=== PATIENT | male | born 1985 | race Caucasian/White ===

== ENCOUNTER 2018-07-06 15:11 | Inpatient (IN) | payer MEDICAID ==
[~2018-07-06] VITALS: Ht 172.7 cm; Wt 101.2 kg
[~2018-07-06 15:11] MED LIST: ARIP5TAB8 PO; DSS100 PO; OMEP20 PO
[2018-07-06] MEDS ORDERED: ARIP300S3 IM (15:15)
[2018-07-06] MEDS ORDERED: OLANZapine 5 MG RAPDIS TABLET PO PRN (18:00)
[2018-07-06] MEDS: LORazepam 2 MG TABLET PO PRN (19:13)
[2018-07-06 20:27] LABS: APPEARANCE,URINE CLEAR (CLEAR); BILIRUBIN,URINE NEGATIVE (NEGATIVE); GLUCOSE, URINE (UA) NEGATIVE (NEGATIVE); KETONES,URINE TRACE mg/dL (NEGATIVE); LEUKOCYTE ESTERASE ,URINE NEGATIVE (NEGATIVE); NITRATE,URINE NEGATIVE (NEGATIVE); OCCULT BLOOD,URINE NEGATIVE (NEGATIVE); PH,URINE 5.5 (5.0-8.0); PROTEIN,URINE NEGATIVE (NEGATIVE); UROBILINOGEN,URINE 0.2 mg/dL (<=1.0)
[2018-07-06 22:05] LABS: BASOPHILS % (AUTO) 0.9 % (0.0-2.0); EOSINOPHILS % (AUTO) 3.5 % (1.0-6.0); HEMOGLOBIN 14.5 g/dL (13.5-17.5); LYMPHOCYTES # (AUTO) 2.5 K/uL (1.0-4.8); LYMPHOCYTES % (AUTO) 36.3 % (22.0-44.0); MEAN CORPUSCULAR HEMOGLOBIN 29.8 pg (26.0-34.0); MEAN CORPUSCULAR HGB CONC 34.5 G/dL (31.0-37.0); MEAN CORPUSCULAR VOLUME 86 fL (80-100); MONOCYTES # (AUTO) 0.5 K/uL (0.1-1.0); MONOCYTES % (AUTO) 6.9 % (2.0-9.0); NEUTROPHILS # (AUTO) 3.6 K/uL (1.8-7.7); NEUTROPHILS % (AUTO) 52.4 % (40.0-70.0); PLATELET COUNT (AUTO) 232 K/uL (150-450); RED BLOOD CELL COUNT(AUTO) 4.86 MIL/uL (4.50-5.90); RED CELL DISTRIBUTION WIDTH 13.6 % (11.5-14.5)
[2018-07-06 22:14] LABS: AMPHET/METH SCREEN,URINE POSITIVE (NEGATIVE); BARBITURATE SCREEN, URINE NEGATIVE (NEGATIVE); BENZODIAZEPINES SCREEN,URINE NEGATIVE (NEGATIVE); CANNABINOID SCREEN,URINE POSITIVE (NEGATIVE); COCAINE SCREEN,URINE NEGATIVE (NEGATIVE); METHADONE SCREEN, URINE NEGATIVE (NEGATIVE); OPIATE SCREEN,URINE NEGATIVE (NEGATIVE); PHENCYCLIDINE SCREEN,URINE NEGATIVE (NEGATIVE)
[2018-07-06 22:14] LABS: ANION GAP 7 mmol/L (8-16); CALCIUM, TOTAL 8.4 mg/dL (8.8-10.5); CARBON DIOXIDE 29 mmol/L (22-29); CHLORIDE 105 mmol/L (98-107); CREATININE 0.68 mg/dL (0.60-1.30); GLOMERULAR FILTR. RATE CALC > 60 mL/min (>60); GLUCOSE,RANDOM 105 mg/dL (70-110); POTASSIUM 3.9 mmol/L (3.5-5.1); SODIUM SERUM 141 mmol/L (136-145); UREA NITROGEN, BLOOD 12 mg/dL (7-18)
[2018-07-06 22:20] LABS: ALANINE AMINOTRANSFERASE 40 U/L (12-78); ALBUMIN 3.3 g/dL (3.4-5.0); ALKALINE PHOSPHATASE 90 U/L (46-116); ASPARTATE AMINOTRANSFERASE 20 U/L (15-37); BILIRUBIN,TOTAL 0.2 mg/dL (0.1-1.0); TOTAL PROTEIN, SERUM 6.5 g/dL (6.4-8.2)
[2018-07-06] MEDS: ZOLPIDEM TARTRATE 10 MG TABLET PO PRN (22:43)
[2018-07-07] MEDS ORDERED: GuaiFENesin/D-METHORPHAN [SUGAR-FREE] 200-20MG/10 ML SYRUP UDCUP PO PRN (00:45)
[2018-07-07] MEDS ORDERED: LOPERAMIDE HCL 2 MG CAPSULE PO PRN (00:45)
[2018-07-07] MEDS ORDERED: ONDANSETRON HCL 4 MG TABLET PO PRN (00:45)
[2018-07-07] MEDS ORDERED: PETROLATUM,WHITE 71 GM JELLY TP PRN (00:45)
[2018-07-07] MEDS ORDERED: NICOTINE 14 MG/24 HOUR PATCH TD PRN (00:45)
[2018-07-07] MEDS ORDERED: IBUPROFEN 400 MG TABLET PO PRN (00:45)
[2018-07-07] MEDS ORDERED: MAGNESIUM HYDROXIDE SUSPENSION 30 ML UDCUP PO PRN (00:45)
[2018-07-07] MEDS ORDERED: MAG HYDROX/AL HYDROX/SIMETH ES 30 ML SUSPENSION UDCUP PO PRN (00:45)
[2018-07-07] MEDS ORDERED: DOCUSATE SODIUM 100 MG CAPSULE PO PRN (00:45)
[2018-07-07] MEDS ORDERED: ALBUTEROL SULFATE HFA 90 MCG/PUFF 8 GM INHALER IH PRN (00:45)
[2018-07-07] MEDS ORDERED: ACETAMINOPHEN 325 MG TABLET PO PRN (00:45)
[2018-07-07] MEDS ORDERED: CloNIDine HCL 0.1 MG TABLET PO PRN (00:45)
[2018-07-07 00:58] VITALS: BP 121/78
[2018-07-07 03:11] LABS: CHOL/HDL RATIO 5.7 (4.2-7.3); CHOLESTEROL 136 mg/dL (131-200); HDL CHOLESTEROL 24 mg/dL (40-60); LDL CHOL (CALC.) 76 mg/dL (0-130); TRIGLYCERIDES 182 mg/dL (15-150)
[2018-07-07 10:00] VITALS: BP 126/70
[2018-07-07] MEDS: LORazepam 2 MG TABLET PO PRN (16:15)
[2018-07-07 20:14] VITALS: BP 124/75
[2018-07-07] MEDS: ARIPiprazole 10 MG TABLET PO SCH (20:44)
[2018-07-08] MEDS: FLUoxetine HCL 20 MG CAPSULE PO SCH (08:09)
[2018-07-08 08:49] VITALS: BP 132/74
[2018-07-08] MEDS: LORazepam 2 MG TABLET PO PRN (13:16)
[2018-07-08 18:24] VITALS: BP 138/84
[2018-07-08] MEDS: ARIPiprazole 10 MG TABLET PO SCH (20:30)
[2018-07-08] MEDS: ZOLPIDEM TARTRATE 10 MG TABLET PO PRN (21:13)
[2018-07-09] MEDS: FLUoxetine HCL 20 MG CAPSULE PO SCH (09:18)
[2018-07-09 10:23] VITALS: BP 114/69
[2018-07-09 20:11] VITALS: BP 130/80
[2018-07-09] MEDS: ARIPiprazole 10 MG TABLET PO SCH (20:22)
[2018-07-09] MEDS: ZOLPIDEM TARTRATE 10 MG TABLET PO PRN (20:23)
[2018-07-10] MEDS: FLUoxetine HCL 20 MG CAPSULE PO SCH (09:06)
[2018-07-10 09:12] VITALS: BP 151/77
[2018-07-10 16:36] VITALS: BP 127/78
[2018-07-10 17:36] VITALS: BP 114/74
[2018-07-10] MEDS: ARIPiprazole 10 MG TABLET PO SCH (20:16)
[2018-07-11] MEDS: FLUoxetine HCL 20 MG CAPSULE PO SCH (08:23)
[2018-07-11 08:45] VITALS: BP 162/98
[2018-07-11] MEDS ORDERED: ARIP10TA8 PO (14:32)
[2018-07-11] MEDS ORDERED: FLUO-191 PO (14:32)
== END 2018-07-11 16:30 | disposition home or self-care (01) | DRG 750 ==
LOC: EMS 15:12 → UNDOADMIN 23:58 → AHU 23:58 → 3EI 07-08 16:56
PROVIDERS: ADMIT Psychiatry & Neurology Psychiatry; ATTEND Psychiatry & Neurology Psychiatry
DX: F25.1 Schizoaffective disorder, depressive type (principal); E66.9 Obesity, unspecified; F41.9 Anxiety disorder, unspecified; G47.00 Insomnia, unspecified; K59.00 Constipation, unspecified; F19.10 Other psychoactive substance abuse, uncomplicated; F15.10 Other stimulant abuse, uncomplicated; F12.10 Cannabis abuse, uncomplicated; R45.87 Impulsiveness; Z68.33 Body mass index [BMI] 33.0-33.9, adult; Z71.51 Drug abuse counseling and surveillance of drug abuser; Z79.899 Other long term (current) drug therapy; Z88.8 Allergy status to other drugs, medicaments and biological substances
CPT/HCPCS: 84443; G0378; G0480; Q0162

== ENCOUNTER 2018-08-18 17:58 | Inpatient (IN) | payer MEDICAID, OTHER ==
[~2018-08-18] VITALS: Ht 175.3 cm; Wt 103.0 kg
[~2018-08-18 17:58] MED LIST changes: +ARIP10TA8 PO; -ARIP5TAB8 PO; -DSS100 PO; +FLUO-191 PO; -OMEP20 PO
[2018-08-18 19:09] LABS: BASOPHILS % (AUTO) 1.1 % (0.0-2.0); EOSINOPHILS % (AUTO) 1.5 % (1.0-6.0); HEMATOCRIT 44.4 % (41-53); HEMOGLOBIN 15.7 g/dL (13.5-17.5); LYMPHOCYTES # (AUTO) 1.8 K/uL (1.0-4.8); LYMPHOCYTES % (AUTO) 26.2 % (22.0-44.0); MEAN CORPUSCULAR HEMOGLOBIN 30.5 pg (26.0-34.0); MEAN CORPUSCULAR HGB CONC 35.4 G/dL (31.0-37.0); MEAN CORPUSCULAR VOLUME 86 fL (80-100); MONOCYTES # (AUTO) 0.4 K/uL (0.1-1.0); MONOCYTES % (AUTO) 6.5 % (2.0-9.0); NEUTROPHILS # (AUTO) 4.5 K/uL (1.8-7.7); NEUTROPHILS % (AUTO) 64.7 % (40.0-70.0); PLATELET COUNT (AUTO) 253 K/uL (150-450); RED BLOOD CELL COUNT(AUTO) 5.15 MIL/uL (4.50-5.90); RED CELL DISTRIBUTION WIDTH 14.3 % (11.5-14.5)
[2018-08-18 19:17] LABS: AMPHET/METH SCREEN,URINE NEGATIVE (NEGATIVE); BARBITURATE SCREEN, URINE NEGATIVE (NEGATIVE); BENZODIAZEPINES SCREEN,URINE NEGATIVE (NEGATIVE); CANNABINOID SCREEN,URINE POSITIVE (NEGATIVE); COCAINE SCREEN,URINE NEGATIVE (NEGATIVE); METHADONE SCREEN, URINE NEGATIVE (NEGATIVE); OPIATE SCREEN,URINE NEGATIVE (NEGATIVE)
[2018-08-18 19:18] LABS: PHENCYCLIDINE SCREEN,URINE NEGATIVE (NEGATIVE)
[2018-08-18 19:28] LABS: ANION GAP 8 mmol/L (8-16); CALCIUM, TOTAL 8.5 mg/dL (8.8-10.5); CARBON DIOXIDE 28 mmol/L (22-29); CHLORIDE 104 mmol/L (98-107); CREATININE 0.98 mg/dL (0.60-1.30); GLOMERULAR FILTR. RATE CALC > 60 mL/min (>60); GLUCOSE,RANDOM 97 mg/dL (70-110); POTASSIUM 3.7 mmol/L (3.5-5.1); SODIUM SERUM 140 mmol/L (136-145); UREA NITROGEN, BLOOD 11 mg/dL (7-18)
[2018-08-18 19:34] LABS: ALANINE AMINOTRANSFERASE 50 U/L (12-78); ALBUMIN 4.2 g/dL (3.4-5.0); ALKALINE PHOSPHATASE 101 U/L (46-116); ASPARTATE AMINOTRANSFERASE 23 U/L (15-37); BILIRUBIN,TOTAL 0.3 mg/dL (0.1-1.0); TOTAL PROTEIN, SERUM 7.5 g/dL (6.4-8.2)
[2018-08-18] MEDS ORDERED: OLANZapine 5 MG TABLET PO ONE (19:45)
[2018-08-18] MEDS ORDERED: LORazepam 2 MG TABLET PO ONE (19:45)
[2018-08-18] MEDS ORDERED: OLANZapine 5 MG RAPDIS TABLET PO PRN (20:15)
[2018-08-18] MEDS ORDERED: LORazepam 2 MG TABLET PO PRN (20:15)
[2018-08-18] MEDS ORDERED: ZOLPIDEM TARTRATE 10 MG TABLET PO PRN (20:15)
[2018-08-19] MEDS ORDERED: DiphenhydrAMINE HCL 25 MG CAPSULE PO ONE (01:15)
[2018-08-19] MEDS ORDERED: LORazepam 2 MG TABLET PO ONE (01:15)
[2018-08-19 02:34] VITALS: BP 121/67
[2018-08-19] MEDS ORDERED: MAG HYDROX/AL HYDROX/SIMETH ES 30 ML SUSPENSION UDCUP PO PRN (07:30)
[2018-08-19] MEDS ORDERED: IBUPROFEN 400 MG TABLET PO PRN (07:30)
[2018-08-19] MEDS ORDERED: DOCUSATE SODIUM 100 MG CAPSULE PO PRN (07:30)
[2018-08-19] MEDS ORDERED: ALBUTEROL SULFATE HFA 90 MCG/PUFF 8 GM INHALER IH PRN (07:30)
[2018-08-19] MEDS ORDERED: LOPERAMIDE HCL 2 MG CAPSULE PO PRN (07:30)
[2018-08-19] MEDS ORDERED: CloNIDine HCL 0.1 MG TABLET PO PRN (07:30)
[2018-08-19] MEDS ORDERED: NICOTINE 14 MG/24 HOUR PATCH TD PRN (07:30)
[2018-08-19] MEDS ORDERED: PETROLATUM,WHITE 71 GM JELLY TP PRN (07:30)
[2018-08-19] MEDS ORDERED: ACETAMINOPHEN 325 MG TABLET PO PRN (07:30)
[2018-08-19] MEDS ORDERED: MAGNESIUM HYDROXIDE SUSPENSION 30 ML UDCUP PO PRN (07:30)
[2018-08-19] MEDS ORDERED: GuaiFENesin/D-METHORPHAN [SUGAR-FREE] 200-20MG/10 ML SYRUP UDCUP PO PRN (07:30)
[2018-08-19] MEDS ORDERED: ONDANSETRON HCL 4 MG TABLET PO PRN (07:30)
[2018-08-19 07:36] LABS: CHOL/HDL RATIO 4.5 (4.2-7.3)
[2018-08-19 10:02] VITALS: BP 139/86
[2018-08-19] MEDS: ARIPiprazole 10 MG TABLET PO SCH (14:12)
[2018-08-19] MEDS: FLUoxetine HCL 20 MG CAPSULE PO SCH (14:12)
[2018-08-19 20:50] VITALS: BP 125/71
[2018-08-20 06:46] LABS: BASOPHILS % (AUTO) 0.9 % (0.0-2.0); EOSINOPHILS % (AUTO) 4.5 % (1.0-6.0); HEMATOCRIT 43.4 % (41-53); HEMOGLOBIN 15.2 g/dL (13.5-17.5); LYMPHOCYTES # (AUTO) 1.8 K/uL (1.0-4.8); LYMPHOCYTES % (AUTO) 36.4 % (22.0-44.0); MEAN CORPUSCULAR HEMOGLOBIN 30.1 pg (26.0-34.0); MEAN CORPUSCULAR HGB CONC 35.1 G/dL (31.0-37.0); MEAN CORPUSCULAR VOLUME 86 fL (80-100); MONOCYTES # (AUTO) 0.4 K/uL (0.1-1.0); MONOCYTES % (AUTO) 8.7 % (2.0-9.0); NEUTROPHILS # (AUTO) 2.5 K/uL (1.8-7.7); NEUTROPHILS % (AUTO) 49.5 % (40.0-70.0); PLATELET COUNT (AUTO) 220 K/uL (150-450); RED BLOOD CELL COUNT(AUTO) 5.06 MIL/uL (4.50-5.90); RED CELL DISTRIBUTION WIDTH 13.9 % (11.5-14.5)
[2018-08-20 07:01] LABS: HEMOGLOBIN A1C 5.3 % (4.5-6.2)
[2018-08-20 07:37] LABS: ALANINE AMINOTRANSFERASE 53 U/L (12-78); ALBUMIN 3.9 g/dL (3.4-5.0); ALKALINE PHOSPHATASE 93 U/L (46-116); ANION GAP 6 mmol/L (8-16); ASPARTATE AMINOTRANSFERASE 21 U/L (15-37); BILIRUBIN,TOTAL 0.5 mg/dL (0.1-1.0); CALCIUM, TOTAL 8.5 mg/dL (8.8-10.5); CARBON DIOXIDE 29 mmol/L (22-29); CHLORIDE 104 mmol/L (98-107); CHOL/HDL RATIO 5.6 (4.2-7.3); CHOLESTEROL 156 mg/dL (131-200); CREATININE 0.88 mg/dL (0.60-1.30); GLOMERULAR FILTR. RATE CALC > 60 mL/min (>60); GLUCOSE,RANDOM 85 mg/dL (70-110); HDL CHOLESTEROL 28 mg/dL (40-60); LDL CHOL (CALC.) 101 mg/dL (0-130); POTASSIUM 4.6 mmol/L (3.5-5.1); SODIUM SERUM 139 mmol/L (136-145); TOTAL PROTEIN, SERUM 6.6 g/dL (6.4-8.2); TRIGLYCERIDES 137 mg/dL (15-150); UREA NITROGEN, BLOOD 12 mg/dL (7-18)
[2018-08-20] MEDS: ARIPiprazole 10 MG TABLET PO SCH (09:21)
[2018-08-20] MEDS: FLUoxetine HCL 20 MG CAPSULE PO SCH (09:22)
[2018-08-20 09:28] VITALS: BP 119/80
[2018-08-20 21:50] VITALS: BP 117/76
[2018-08-21] MEDS: ARIPiprazole 10 MG TABLET PO SCH (08:13)
[2018-08-21] MEDS: FLUoxetine HCL 20 MG CAPSULE PO SCH (08:13)
[2018-08-21 09:15] VITALS: BP 125/79
[2018-08-21] MEDS ORDERED: FLUO-191 PO (12:34)
[2018-08-21] MEDS ORDERED: ARIP10TA8 PO (12:34)
== END 2018-08-21 14:30 | disposition home or self-care (01) | DRG 750 ==
LOC: EMS 18:00 → 3EI 08-19 01:05
PROVIDERS: ADMIT Psychiatry & Neurology Psychiatry; ATTEND Psychiatry & Neurology Psychiatry
DX: F25.9 Schizoaffective disorder, unspecified (principal); F12.90 Cannabis use, unspecified, uncomplicated; F17.200 Nicotine dependence, unspecified, uncomplicated; F31.9 Bipolar disorder, unspecified; F41.9 Anxiety disorder, unspecified; K59.00 Constipation, unspecified; G47.00 Insomnia, unspecified; Z79.899 Other long term (current) drug therapy
CPT/HCPCS: 83036; 84443; G0480

== ENCOUNTER 2018-09-28 15:29 | Emergency (ER) | payer MEDICAID, OTHER ==
[~2018-09-28] VITALS: Ht 172.7 cm; Wt 109.1 kg
[2018-09-28] MEDS ORDERED: ONDANSETRON HCL 4 MG TABLET PO ONE (19:15)
[2018-09-28 19:38] LABS: BASOPHILS % (AUTO) 0.4 % (0.0-2.0); EOSINOPHILS % (AUTO) 1.2 % (1.0-6.0); HEMATOCRIT 44.6 % (41-53); HEMOGLOBIN 15.4 g/dL (13.5-17.5); LYMPHOCYTES # (AUTO) 1.1 K/uL (1.0-4.8); LYMPHOCYTES % (AUTO) 17.3 % (22.0-44.0); MEAN CORPUSCULAR HEMOGLOBIN 29.7 pg (26.0-34.0); MEAN CORPUSCULAR HGB CONC 34.6 G/dL (31.0-37.0); MEAN CORPUSCULAR VOLUME 86 fL (80-100); MONOCYTES # (AUTO) 0.4 K/uL (0.1-1.0); MONOCYTES % (AUTO) 6.1 % (2.0-9.0); NEUTROPHILS # (AUTO) 4.7 K/uL (1.8-7.7); PLATELET COUNT (AUTO) 198 K/uL (150-450); RED CELL DISTRIBUTION WIDTH 13.6 % (11.5-14.5)
[2018-09-28 19:59] LABS: APPEARANCE,URINE CLEAR (CLEAR); BILIRUBIN,URINE NEGATIVE (NEGATIVE); GLUCOSE, URINE (UA) NEGATIVE (NEGATIVE); KETONES,URINE NEGATIVE (NEGATIVE); LEUKOCYTE ESTERASE ,URINE NEGATIVE (NEGATIVE); NITRATE,URINE NEGATIVE (NEGATIVE); OCCULT BLOOD,URINE NEGATIVE (NEGATIVE); PROTEIN,URINE TRACE (NEGATIVE)
[2018-09-28 20:03] LABS: ALANINE AMINOTRANSFERASE 53 U/L (12-78); ALBUMIN 3.7 g/dL (3.4-5.0); ALKALINE PHOSPHATASE 95 U/L (46-116); ANION GAP 7 mmol/L (8-16); ASPARTATE AMINOTRANSFERASE 27 U/L (15-37); BILIRUBIN,TOTAL 0.5 mg/dL (0.1-1.0); CALCIUM, TOTAL 8.8 mg/dL (8.8-10.5); CARBON DIOXIDE 30 mmol/L (22-29); CHLORIDE 100 mmol/L (98-107); CREATININE 0.72 mg/dL (0.60-1.30); GLOMERULAR FILTR. RATE CALC > 60 mL/min (>60); GLUCOSE,RANDOM 88 mg/dL (70-110); LIPASE 102 U/L (73-393); POTASSIUM 3.9 mmol/L (3.5-5.1); SODIUM SERUM 137 mmol/L (136-145); TOTAL PROTEIN, SERUM 7.2 g/dL (6.4-8.2); UREA NITROGEN, BLOOD 7 mg/dL (7-18)
[2018-09-28 20:10] LABS: BACTERIA,URINE None Seen /HPF (None Seen); RBC,URINE 0-2 /HPF (0-2); SQUAMOUS EPITHELIAL CELL,UR Rare /LPF (None Seen); WBC,URINE 0-2 /HPF (0-5)
[2018-09-28 20:28] LABS: PLATELET MORPHOLOGY COMMENT NORMAL
[2018-09-28 20:35] VITALS: BP 120/70
== END 2018-09-28 20:45 | disposition home or self-care (01) ==
LOC: EMS 15:30
DX: R19.7 Diarrhea, unspecified (principal); R11.2 Nausea with vomiting, unspecified; R10.9 Unspecified abdominal pain; F31.9 Bipolar disorder, unspecified; F41.9 Anxiety disorder, unspecified; F17.210 Nicotine dependence, cigarettes, uncomplicated; F12.90 Cannabis use, unspecified, uncomplicated; Z88.8 Allergy status to other drugs, medicaments and biological substances; Z79.899 Other long term (current) drug therapy
CPT/HCPCS: 36415; 80053; 81001; 83690; 85025; 99283; Q0162

== ENCOUNTER 2018-10-18 14:22 | Inpatient (IN) | payer MEDICAID, OTHER ==
[~2018-10-18] VITALS: Ht 170.2 cm; Wt 97.1 kg
[2018-10-18] MEDS ORDERED: OLANZapine 5 MG TABLET PO ONE (15:15)
[2018-10-18 15:17] LABS: BASOPHILS % (AUTO) 0.8 % (0.0-2.0); EOSINOPHILS % (AUTO) 4.1 % (1.0-6.0); HEMATOCRIT 43.3 % (41-53); HEMOGLOBIN 14.8 g/dL (13.5-17.5); LYMPHOCYTES # (AUTO) 1.9 K/uL (1.0-4.8); LYMPHOCYTES % (AUTO) 32.5 % (22.0-44.0); MEAN CORPUSCULAR HEMOGLOBIN 29.8 pg (26.0-34.0); MEAN CORPUSCULAR HGB CONC 34.2 G/dL (31.0-37.0); MEAN CORPUSCULAR VOLUME 87 fL (80-100); MONOCYTES # (AUTO) 0.7 K/uL (0.1-1.0); MONOCYTES % (AUTO) 11.2 % (2.0-9.0); NEUTROPHILS % (AUTO) 51.4 % (40.0-70.0); PLATELET COUNT (AUTO) 243 K/uL (150-450); RED BLOOD CELL COUNT(AUTO) 4.97 MIL/uL (4.50-5.90); RED CELL DISTRIBUTION WIDTH 13.7 % (11.5-14.5)
[2018-10-18 15:27] LABS: AMPHET/METH SCREEN,URINE NEGATIVE (NEGATIVE); BARBITURATE SCREEN, URINE NEGATIVE (NEGATIVE); BENZODIAZEPINES SCREEN,URINE NEGATIVE (NEGATIVE); CANNABINOID SCREEN,URINE POSITIVE (NEGATIVE); COCAINE SCREEN,URINE NEGATIVE (NEGATIVE); METHADONE SCREEN, URINE NEGATIVE (NEGATIVE); OPIATE SCREEN,URINE NEGATIVE (NEGATIVE)
[2018-10-18 15:28] LABS: PHENCYCLIDINE SCREEN,URINE NEGATIVE (NEGATIVE)
[2018-10-18 15:35] LABS: ANION GAP 7 mmol/L (8-16); CALCIUM, TOTAL 8.6 mg/dL (8.8-10.5); CARBON DIOXIDE 29 mmol/L (22-29); CHLORIDE 104 mmol/L (98-107); CREATININE 0.84 mg/dL (0.60-1.30); GLOMERULAR FILTR. RATE CALC > 60 mL/min (>60); GLUCOSE,RANDOM 68 mg/dL (70-110); POTASSIUM 3.9 mmol/L (3.5-5.1); SODIUM SERUM 140 mmol/L (136-145); UREA NITROGEN, BLOOD 11 mg/dL (7-18)
[2018-10-18 15:41] LABS: ALANINE AMINOTRANSFERASE 35 U/L (12-78); ALBUMIN 3.6 g/dL (3.4-5.0); ALKALINE PHOSPHATASE 89 U/L (46-116); ASPARTATE AMINOTRANSFERASE 18 U/L (15-37); BILIRUBIN,TOTAL 0.2 mg/dL (0.1-1.0); TOTAL PROTEIN, SERUM 6.7 g/dL (6.4-8.2)
[2018-10-18] MEDS ORDERED: OLANZapine 5 MG RAPDIS TABLET PO PRN (16:45)
[2018-10-18] MEDS ORDERED: ZOLPIDEM TARTRATE 10 MG TABLET PO PRN (16:45)
[2018-10-18 18:41] VITALS: BP 126/82
[2018-10-18] MEDS ORDERED: LOPERAMIDE HCL 2 MG CAPSULE PO PRN (19:45)
[2018-10-18] MEDS ORDERED: IBUPROFEN 400 MG TABLET PO PRN (19:45)
[2018-10-18] MEDS ORDERED: GuaiFENesin/D-METHORPHAN [SUGAR-FREE] 200-20MG/10 ML SYRUP UDCUP PO PRN (19:45)
[2018-10-18] MEDS ORDERED: MAGNESIUM HYDROXIDE SUSPENSION 30 ML UDCUP PO PRN (19:45)
[2018-10-18] MEDS ORDERED: PETROLATUM,WHITE 71 GM JELLY TP PRN (19:45)
[2018-10-18] MEDS ORDERED: CloNIDine HCL 0.1 MG TABLET PO PRN (19:45)
[2018-10-18] MEDS ORDERED: ALBUTEROL SULFATE HFA 90 MCG/PUFF 8 GM INHALER IH PRN (19:45)
[2018-10-18] MEDS ORDERED: MAG HYDROX/AL HYDROX/SIMETH ES 30 ML SUSPENSION UDCUP PO PRN (19:45)
[2018-10-18] MEDS ORDERED: ONDANSETRON HCL 4 MG TABLET PO PRN (19:45)
[2018-10-18] MEDS ORDERED: DOCUSATE SODIUM 100 MG CAPSULE PO PRN (19:45)
[2018-10-18] MEDS ORDERED: ACETAMINOPHEN 325 MG TABLET PO PRN (19:45)
[2018-10-19 00:36] VITALS: BP 115/64
[2018-10-19 07:33] LABS: BASOPHILS % (AUTO) 1.2 % (0.0-2.0); EOSINOPHILS % (AUTO) 4.6 % (1.0-6.0); HEMATOCRIT 42.9 % (41-53); HEMOGLOBIN 14.9 g/dL (13.5-17.5); LYMPHOCYTES # (AUTO) 1.9 K/uL (1.0-4.8); MEAN CORPUSCULAR HEMOGLOBIN 30.3 pg (26.0-34.0); MEAN CORPUSCULAR HGB CONC 34.7 G/dL (31.0-37.0); MEAN CORPUSCULAR VOLUME 87 fL (80-100); MONOCYTES # (AUTO) 0.5 K/uL (0.1-1.0); MONOCYTES % (AUTO) 10.4 % (2.0-9.0); NEUTROPHILS # (AUTO) 2.2 K/uL (1.8-7.7); NEUTROPHILS % (AUTO) 44.8 % (40.0-70.0); PLATELET COUNT (AUTO) 228 K/uL (150-450); RED BLOOD CELL COUNT(AUTO) 4.92 MIL/uL (4.50-5.90); RED CELL DISTRIBUTION WIDTH 13.6 % (11.5-14.5)
[2018-10-19 07:37] LABS: AMPHET/METH SCREEN,URINE NEGATIVE (NEGATIVE); BARBITURATE SCREEN, URINE NEGATIVE (NEGATIVE); BENZODIAZEPINES SCREEN,URINE NEGATIVE (NEGATIVE); CANNABINOID SCREEN,URINE POSITIVE (NEGATIVE); COCAINE SCREEN,URINE NEGATIVE (NEGATIVE); METHADONE SCREEN, URINE NEGATIVE (NEGATIVE); OPIATE SCREEN,URINE NEGATIVE (NEGATIVE); PHENCYCLIDINE SCREEN,URINE NEGATIVE (NEGATIVE)
[2018-10-19 07:49] LABS: APPEARANCE,URINE CLEAR (CLEAR); BILIRUBIN,URINE NEGATIVE (NEGATIVE); GLUCOSE, URINE (UA) NEGATIVE (NEGATIVE); KETONES,URINE NEGATIVE (NEGATIVE); LEUKOCYTE ESTERASE ,URINE NEGATIVE (NEGATIVE); NITRATE,URINE NEGATIVE (NEGATIVE); OCCULT BLOOD,URINE NEGATIVE (NEGATIVE); PH,URINE 6.5 (5.0-8.0); PROTEIN,URINE NEGATIVE (NEGATIVE); UROBILINOGEN,URINE 0.2 mg/dL (<=1.0)
[2018-10-19 08:13] LABS: HEMOGLOBIN A1C 5.3 % (4.5-6.2)
[2018-10-19 08:17] VITALS: BP 140/68
[2018-10-19 08:18] LABS: ALANINE AMINOTRANSFERASE 46 U/L (12-78); ALBUMIN 3.7 g/dL (3.4-5.0); ALKALINE PHOSPHATASE 84 U/L (46-116); ANION GAP 5 mmol/L (8-16); ASPARTATE AMINOTRANSFERASE 18 U/L (15-37); BILIRUBIN,TOTAL 0.2 mg/dL (0.1-1.0); CALCIUM, TOTAL 8.9 mg/dL (8.8-10.5); CARBON DIOXIDE 33 mmol/L (22-29); CHLORIDE 100 mmol/L (98-107); CHOL/HDL RATIO 4.1 (4.2-7.3); CHOLESTEROL 126 mg/dL (131-200); CREATININE 0.92 mg/dL (0.60-1.30); GLOMERULAR FILTR. RATE CALC > 60 mL/min (>60); GLUCOSE,RANDOM 80 mg/dL (70-110); HDL CHOLESTEROL 31 mg/dL (40-60); LDL CHOL (CALC.) 70 mg/dL (0-130); POTASSIUM 4.3 mmol/L (3.5-5.1); SODIUM SERUM 138 mmol/L (136-145); THYROID STIMULATING HORMONE 3.76 uIU/mL (0.36-3.74); TOTAL PROTEIN, SERUM 6.6 g/dL (6.4-8.2); TRIGLYCERIDES 124 mg/dL (15-150); UREA NITROGEN, BLOOD 12 mg/dL (7-18)
[2018-10-19] MEDS: NICOTINE 14 MG/24 HOUR PATCH TD PRN (10:07)
[2018-10-19] MEDS: LORazepam 2 MG TABLET PO PRN (10:08)
[2018-10-19 16:22] VITALS: BP 121/72
[2018-10-20 00:45] VITALS: BP 108/62
[2018-10-20] MEDS: FLUoxetine HCL 20 MG CAPSULE PO SCH (08:11)
[2018-10-20] MEDS: ARIPiprazole 10 MG TABLET PO SCH (08:11)
[2018-10-20 08:14] VITALS: BP 140/86
[2018-10-20] MEDS: LORazepam 2 MG TABLET PO PRN (10:03)
[2018-10-20] MEDS: NICOTINE 14 MG/24 HOUR PATCH TD PRN (10:06)
[2018-10-20 16:00] VITALS: BP 124/74
[2018-10-21 00:50] VITALS: BP 115/66
[2018-10-21 08:04] VITALS: BP 122/75
[2018-10-21] MEDS: ARIPiprazole 10 MG TABLET PO SCH (08:39)
[2018-10-21] MEDS: FLUoxetine HCL 20 MG CAPSULE PO SCH (08:39)
[2018-10-21] MEDS: LORazepam 2 MG TABLET PO PRN (10:07)
[2018-10-21 16:19] VITALS: BP 112/77
[2018-10-22 02:38] VITALS: BP 114/76
[2018-10-22 08:15] VITALS: BP 114/65
[2018-10-22] MEDS: NICOTINE 14 MG/24 HOUR PATCH TD PRN (08:27)
[2018-10-22] MEDS: ARIPiprazole 15 MG TABLET PO SCH (08:27)
[2018-10-22] MEDS: FLUoxetine HCL 20 MG CAPSULE PO SCH (08:27)
[2018-10-22] MEDS: LORazepam 2 MG TABLET PO PRN (14:54)
[2018-10-22 16:13] VITALS: BP 120/70
[2018-10-23 02:57] VITALS: BP 118/63
[2018-10-23] MEDS ORDERED: FLUO-191 PO (08:03)
[2018-10-23] MEDS ORDERED: ARIP15TA2 PO (08:03)
[2018-10-23 08:23] VITALS: BP 137/82
[2018-10-23] MEDS: FLUoxetine HCL 20 MG CAPSULE PO SCH (08:27)
[2018-10-23] MEDS: ARIPiprazole 15 MG TABLET PO SCH (08:28)
== END 2018-10-23 09:45 | disposition home or self-care (01) | DRG 750 ==
LOC: EMS 14:22 → B2S 17:14
PROVIDERS: ADMIT Psychiatry & Neurology Psychiatry; ATTEND Psychiatry & Neurology Psychiatry
DX: F25.0 Schizoaffective disorder, bipolar type (principal); R45.851 Suicidal ideations; F17.210 Nicotine dependence, cigarettes, uncomplicated; F41.9 Anxiety disorder, unspecified; G47.00 Insomnia, unspecified; F12.10 Cannabis abuse, uncomplicated; K59.00 Constipation, unspecified; F32.9 Major depressive disorder, single episode, unspecified; Z79.899 Other long term (current) drug therapy; Z28.21 Immunization not carried out because of patient refusal; Z88.8 Allergy status to other drugs, medicaments and biological substances; Z71.51 Drug abuse counseling and surveillance of drug abuser
CPT/HCPCS: 83036; 84439; 84443; 84481; G0480

== ENCOUNTER 2019-01-12 01:41 | Emergency (ER) | payer MEDICAID, OTHER ==
[~2019-01-12] VITALS: Ht 170.2 cm; Wt 95.0 kg
[~2019-01-12 01:41] MED LIST changes: -ARIP10TA8 PO; +ARIP15TA2 PO
[2019-01-12] MEDS ORDERED: ARIP400S3 IM (01:57)
[2019-01-12 02:44] LABS: BASOPHILS % (AUTO) 0.8 % (0.0-2.0); EOSINOPHILS % (AUTO) 3.2 % (1.0-6.0); HEMATOCRIT 46.6 % (41-53); HEMOGLOBIN 15.9 g/dL (13.5-17.5); LYMPHOCYTES # (AUTO) 1.8 K/uL (1.0-4.8); LYMPHOCYTES % (AUTO) 25.9 % (22.0-44.0); MEAN CORPUSCULAR HEMOGLOBIN 30.1 pg (26.0-34.0); MEAN CORPUSCULAR HGB CONC 34.1 G/dL (31.0-37.0); MEAN CORPUSCULAR VOLUME 88 fL (80-100); MONOCYTES # (AUTO) 0.4 K/uL (0.1-1.0); MONOCYTES % (AUTO) 6.5 % (2.0-9.0); NEUTROPHILS # (AUTO) 4.3 K/uL (1.8-7.7); NEUTROPHILS % (AUTO) 63.6 % (40.0-70.0); PLATELET COUNT (AUTO) 236 K/uL (150-450); RED BLOOD CELL COUNT(AUTO) 5.27 MIL/uL (4.50-5.90); RED CELL DISTRIBUTION WIDTH 13.8 % (11.5-14.5)
[2019-01-12 02:49] LABS: ANION GAP 13 mmol/L (8-16); CALCIUM, TOTAL 8.9 mg/dL (8.8-10.5); CARBON DIOXIDE 23 mmol/L (22-29); CHLORIDE 102 mmol/L (98-107); CREATININE 0.99 mg/dL (0.60-1.30); GLOMERULAR FILTR. RATE CALC > 60 mL/min (>60); GLUCOSE,RANDOM 86 mg/dL (70-110); POTASSIUM 3.4 mmol/L (3.5-5.1); SODIUM SERUM 138 mmol/L (136-145); UREA NITROGEN, BLOOD 13 mg/dL (7-18)
[2019-01-12 02:51] LABS: AMPHET/METH SCREEN,URINE NEGATIVE (NEGATIVE); BARBITURATE SCREEN, URINE NEGATIVE (NEGATIVE); BENZODIAZEPINES SCREEN,URINE NEGATIVE (NEGATIVE); CANNABINOID SCREEN,URINE POSITIVE (NEGATIVE); COCAINE SCREEN,URINE NEGATIVE (NEGATIVE); METHADONE SCREEN, URINE NEGATIVE (NEGATIVE); OPIATE SCREEN,URINE NEGATIVE (NEGATIVE)
[2019-01-12 02:52] LABS: PHENCYCLIDINE SCREEN,URINE NEGATIVE (NEGATIVE)
[2019-01-12 02:56] LABS: ALANINE AMINOTRANSFERASE 29 U/L (12-78); ALKALINE PHOSPHATASE 90 U/L (46-116); ASPARTATE AMINOTRANSFERASE 16 U/L (15-37); BILIRUBIN,TOTAL 0.3 mg/dL (0.1-1.0); TOTAL PROTEIN, SERUM 7.2 g/dL (6.4-8.2)
[2019-01-12] MEDS ORDERED: OLANZapine 5 MG TABLET PO ONE (03:00)
[2019-01-12 03:56] VITALS: BP 126/72
== END 2019-01-12 04:08 | disposition home or self-care (01) ==
LOC: EMS 01:41
DX: F20.9 Schizophrenia, unspecified (principal); F12.90 Cannabis use, unspecified, uncomplicated; F41.9 Anxiety disorder, unspecified; F31.9 Bipolar disorder, unspecified; F17.210 Nicotine dependence, cigarettes, uncomplicated
CPT/HCPCS: 36415; 80053; 80307; 85025; 99284; 99406; G0480

== ENCOUNTER 2021-03-18 08:38 | Inpatient (IN) | payer MEDICAID, OTHER ==
[~2021-03-18] VITALS: Ht 167.6 cm; Wt 78.7 kg
[~2021-03-18 08:38] MED LIST changes: -ARIP15TA2 PO; +ARIP400S3 IM; -FLUO-191 PO
[2021-03-18] MEDS ORDERED: DiphenhydrAMINE HCL 50 MG/ML VIAL IM ONE ×2 (09:00→14:00)
[2021-03-18] MEDS ORDERED: FluPHENAZine HCL 2.5 MG/ML INJ IM ONE ×2 (09:00→11:45)
[2021-03-18] MEDS ORDERED: LORazepam 2 MG/ML VIAL IM ONE ×3 (09:00→14:00)
[2021-03-18 10:09] LABS: COVID AG,FIA SOURCE NASOPHARYNGEAL
[2021-03-18 11:27] LABS: BASOPHILS % (AUTO) 0.7 % (0.0-2.0); EOSINOPHILS % (AUTO) 3.9 % (1.0-6.0); HEMATOCRIT 40.5 % (41-53); HEMOGLOBIN 13.5 g/dL (13.5-17.5); LYMPHOCYTES # (AUTO) 1.7 K/uL (1.0-4.8); MEAN CORPUSCULAR HEMOGLOBIN 27.7 pg (26.0-34.0); MEAN CORPUSCULAR HGB CONC 33.3 G/dL (31.0-37.0); MEAN CORPUSCULAR VOLUME 83 fL (80-100); MONOCYTES # (AUTO) 0.6 K/uL (0.1-1.0); NEUTROPHILS # (AUTO) 4.7 K/uL (1.8-7.7); NEUTROPHILS % (AUTO) 64.4 % (40.0-70.0); PLATELET COUNT (AUTO) 236 K/uL (150-450); RED BLOOD CELL COUNT(AUTO) 4.86 MIL/uL (4.50-5.90); RED CELL DISTRIBUTION WIDTH 15.2 % (11.5-14.5)
[2021-03-18 11:38] LABS: ANION GAP 6 mmol/L (8-16); CALCIUM, TOTAL 8.8 mg/dL (8.8-10.5); CARBON DIOXIDE 26 mmol/L (22-29); CHLORIDE 104 mmol/L (98-107); CREATININE 0.56 mg/dL (0.60-1.30); GLOMERULAR FILTR. RATE CALC > 60 mL/min (>60); GLUCOSE,RANDOM 90 mg/dL (70-110); POTASSIUM 3.5 mmol/L (3.5-5.1); SODIUM SERUM 136 mmol/L (136-145); UREA NITROGEN, BLOOD 14 mg/dL (7-18)
[2021-03-18 11:44] LABS: ALANINE AMINOTRANSFERASE 35 U/L (12-78); ALBUMIN 3.7 g/dL (3.4-5.0); ALKALINE PHOSPHATASE 143 U/L (46-116); ASPARTATE AMINOTRANSFERASE 26 U/L (15-37); BILIRUBIN,TOTAL 0.2 mg/dL (0.1-1.0); CHOL/HDL RATIO 2.8 (4.2-7.3); CHOLESTEROL 94 mg/dL (131-200); HDL CHOLESTEROL 34 mg/dL (40-60); LDL CHOL (CALC.) 52 mg/dL (0-130); TOTAL PROTEIN, SERUM 7.3 g/dL (6.4-8.2); TRIGLYCERIDES 38 mg/dL (15-150)
[2021-03-19] MEDS ORDERED: FluPHENAZine HCL 2.5 MG/ML INJ IM ONE (12:45)
[2021-03-19] MEDS ORDERED: LORazepam 2 MG/ML VIAL IM ONE (12:45)
[2021-03-19] MEDS ORDERED: DiphenhydrAMINE HCL 50 MG/ML VIAL IM ONE (12:45)
[2021-03-19] MEDS ORDERED: LIDOCAINE 5% TRANSDERMAL PATCH TD ONE (17:45)
[2021-03-19 19:04] VITALS: BP 134/83
[2021-03-20 02:22] VITALS: BP 130/84
[2021-03-20] MEDS ORDERED: DiphenhydrAMINE HCL 50 MG/ML VIAL ONE (06:30)
[2021-03-20] MEDS ORDERED: FluPHENAZine HCL 2.5 MG/ML INJ IM ONE ×2 (06:33→06:45)
[2021-03-20] MEDS ORDERED: LORazepam 2 MG/ML VIAL ONE (06:35)
[2021-03-20] MEDS ORDERED: DiphenhydrAMINE HCL 50 MG/ML VIAL IM ONE (06:45)
[2021-03-20] MEDS ORDERED: LORazepam 2 MG/ML VIAL IM ONE (06:45)
[2021-03-20] MEDS: ARIPiprazole 15 MG TABLET PO SCH (09:45)
[2021-03-20] MEDS: FLUoxetine HCL 20 MG CAPSULE PO SCH (09:45)
[2021-03-20] MEDS ORDERED: ACETAMINOPHEN 325 MG TABLET PO PRN (10:00)
[2021-03-20] MEDS ORDERED: DOCUSATE SODIUM 100 MG CAPSULE PO PRN (10:00)
[2021-03-20] MEDS ORDERED: MAG HYDROX/AL HYDROX/SIMETH ES 30 ML SUSPENSION UDCUP PO PRN (10:00)
[2021-03-20] MEDS ORDERED: ALBUTEROL SULFATE HFA 90 MCG/PUFF 8 GM INHALER IH PRN (10:00)
[2021-03-20] MEDS ORDERED: ONDANSETRON HCL 4 MG TABLET PO PRN (10:00)
[2021-03-20] MEDS ORDERED: GuaiFENesin/D-METHORPHAN [SUGAR-FREE] 200-20MG/10 ML SYRUP UDCUP PO PRN (10:00)
[2021-03-20] MEDS ORDERED: LOPERAMIDE HCL 2 MG CAPSULE PO PRN (10:00)
[2021-03-20] MEDS ORDERED: CloNIDine HCL 0.1 MG TABLET PO PRN (10:00)
[2021-03-20] MEDS ORDERED: IBUPROFEN 400 MG TABLET PO PRN (10:00)
[2021-03-20] MEDS ORDERED: PETROLATUM,WHITE 28 GM JELLY TP PRN (10:00)
[2021-03-20] MEDS ORDERED: MAGNESIUM HYDROXIDE SUSPENSION 30 ML UDCUP PO PRN (10:00)
[2021-03-20] MEDS ORDERED: NICOTINE 14 MG/24 HOUR PATCH TD PRN (10:00)
[2021-03-20] MEDS: LORazepam 2 MG TABLET PO PRN (17:02)
[2021-03-21] MEDS ORDERED: LORazepam 2 MG/ML VIAL ONE (08:15)
[2021-03-21] MEDS ORDERED: DiphenhydrAMINE HCL 50 MG/ML VIAL ONE ×2 (08:15→08:20)
[2021-03-21] MEDS ORDERED: FluPHENAZine HCL 2.5 MG/ML INJ IM ONE ×2 (08:16→08:30)
[2021-03-21] MEDS ORDERED: DiphenhydrAMINE HCL 50 MG/ML VIAL IM ONE (08:30)
[2021-03-21] MEDS ORDERED: LORazepam 2 MG/ML VIAL IM ONE (08:30)
[2021-03-21] MEDS: FLUoxetine HCL 20 MG CAPSULE PO SCH (09:00)
[2021-03-21] MEDS: ARIPiprazole 15 MG TABLET PO SCH (09:00)
[2021-03-21 13:11] VITALS: BP 132/80
[2021-03-21] MEDS: LORazepam 2 MG TABLET PO PRN (16:47)
[2021-03-21] MEDS: QUEtiapine FUMARATE 100 MG TABLET PO PRN (16:47)
[2021-03-22 05:42] VITALS: BP 112/84
[2021-03-22 08:19] VITALS: BP 127/88
[2021-03-22] MEDS ORDERED: DiphenhydrAMINE HCL 50 MG/ML VIAL ONE (08:31)
[2021-03-22] MEDS ORDERED: LORazepam 2 MG/ML VIAL ONE (08:31)
[2021-03-22] MEDS ORDERED: ChlorproMAZINE HCL 50 MG/2 ML AMP ONE (08:31)
[2021-03-22] MEDS: FLUoxetine HCL 20 MG CAPSULE PO SCH (08:34)
[2021-03-22] MEDS: QUEtiapine FUMARATE 100 MG TABLET PO PRN ×2 (08:34→16:20)
[2021-03-22] MEDS: ARIPiprazole 15 MG TABLET PO SCH (08:34)
[2021-03-22] MEDS: LORazepam 2 MG TABLET PO PRN ×2 (08:34→16:20)
[2021-03-22] MEDS ORDERED: LORazepam 2 MG/ML VIAL IM ONE (08:45)
[2021-03-22] MEDS ORDERED: ChlorproMAZINE HCL 50 MG/2 ML AMP IM ONE (08:45)
[2021-03-22] MEDS ORDERED: DiphenhydrAMINE HCL 50 MG/ML VIAL IM ONE (08:45)
[2021-03-22 16:14] VITALS: BP 118/74
[2021-03-23 02:15] VITALS: BP 120/76
[2021-03-23] MEDS: LORazepam 2 MG TABLET PO PRN ×3 (02:17→20:32)
[2021-03-23] MEDS: ZOLPIDEM TARTRATE 10 MG TABLET PO PRN (02:18)
[2021-03-23] MEDS: ARIPiprazole 15 MG TABLET PO SCH (09:03)
[2021-03-23] MEDS: FLUoxetine HCL 20 MG CAPSULE PO SCH (09:03)
[2021-03-23 09:27] VITALS: BP 117/70
[2021-03-23] MEDS: QUEtiapine FUMARATE 100 MG TABLET PO PRN (20:32)
[2021-03-24 04:28] VITALS: BP 128/70
[2021-03-24] MEDS: ARIPiprazole 15 MG TABLET PO SCH (08:41)
[2021-03-24] MEDS: FLUoxetine HCL 20 MG CAPSULE PO SCH (08:41)
[2021-03-24 10:44] VITALS: BP 118/70
[2021-03-24 16:21] VITALS: BP 106/62
[2021-03-25 00:57] VITALS: BP 112/73
[2021-03-25] MEDS: ZOLPIDEM TARTRATE 10 MG TABLET PO PRN (01:03)
[2021-03-25] MEDS: LORazepam 2 MG TABLET PO PRN ×2 (01:03→11:47)
[2021-03-25 08:35] VITALS: BP 120/69
[2021-03-25] MEDS: ARIPiprazole 15 MG TABLET PO SCH (08:58)
[2021-03-25] MEDS: FLUoxetine HCL 20 MG CAPSULE PO SCH (08:58)
[2021-03-25] MEDS: QUEtiapine FUMARATE 100 MG TABLET PO PRN (11:47)
[2021-03-26 05:20] VITALS: BP 120/72
[2021-03-26 08:59] VITALS: BP 113/65
[2021-03-26] MEDS: FLUoxetine HCL 20 MG CAPSULE PO SCH (09:12)
[2021-03-26] MEDS: ARIPiprazole 15 MG TABLET PO SCH (09:13)
[2021-03-26] MEDS: LORazepam 2 MG TABLET PO PRN (09:13)
[2021-03-26 16:36] VITALS: BP 113/65
[2021-03-27] MEDS: LORazepam 2 MG TABLET PO PRN (08:20)
[2021-03-27] MEDS: ARIPiprazole 15 MG TABLET PO SCH (08:41)
[2021-03-27] MEDS: FLUoxetine HCL 20 MG CAPSULE PO SCH (08:42)
[2021-03-27 09:06] VITALS: BP 117/76
[2021-03-27 16:17] VITALS: BP 110/65
[2021-03-28 08:36] VITALS: BP 110/62
[2021-03-28] MEDS: LORazepam 2 MG TABLET PO PRN (08:41)
[2021-03-28] MEDS: ARIPiprazole 15 MG TABLET PO SCH (08:41)
[2021-03-28] MEDS: FLUoxetine HCL 20 MG CAPSULE PO SCH (08:41)
[2021-03-28 16:14] VITALS: BP 100/60
[2021-03-29 06:32] VITALS: BP 105/60
[2021-03-29] MEDS: LORazepam 2 MG TABLET PO PRN (08:41)
[2021-03-29] MEDS: FLUoxetine HCL 20 MG CAPSULE PO SCH (08:41)
[2021-03-29] MEDS: ARIPiprazole 15 MG TABLET PO SCH (08:41)
[2021-03-29 08:46] VITALS: BP 113/61
[2021-03-29 10:35] LABS: CHOL/HDL RATIO 4.6 (4.2-7.3)
[2021-03-29 16:36] VITALS: BP 102/64
[2021-03-30 02:45] VITALS: BP 110/72
[2021-03-30 08:30] VITALS: BP 119/70
[2021-03-30] MEDS: ARIPiprazole 15 MG TABLET PO SCH (09:14)
[2021-03-30] MEDS: FLUoxetine HCL 20 MG CAPSULE PO SCH (09:14)
[2021-03-30] MEDS ORDERED: ARIPiprazole LAUROXIL ER SUSPENSION 1064 MG/3.9 ML SYRINGE IM ONE (13:30)
[2021-03-30] MEDS ORDERED: ARIPiprazole LAUROXIL,SUBMICR. ER SUSPENSION 675 MG/2.4 ML SYRINGE IM ONE (13:30)
[2021-03-30 16:19] VITALS: BP 121/64
[2021-03-30 18:17] VITALS: BP 104/61
[2021-03-30 19:33] VITALS: BP 106/64
[2021-03-30] MEDS: LORazepam 2 MG TABLET PO PRN (21:33)
[2021-03-31 00:22] VITALS: BP 116/68
[2021-03-31] MEDS: LORazepam 2 MG TABLET PO PRN (08:25)
[2021-03-31 08:48] VITALS: BP 107/68
[2021-03-31] MEDS: FLUoxetine HCL 20 MG CAPSULE PO SCH (08:48)
[2021-03-31 16:19] VITALS: BP 122/76
[2021-04-01 05:41] VITALS: BP 116/70
[2021-04-01 08:09] VITALS: BP 105/68
[2021-04-01] MEDS: LORazepam 2 MG TABLET PO PRN (09:18)
[2021-04-01] MEDS: FLUoxetine HCL 20 MG CAPSULE PO SCH (09:18)
[2021-04-01 16:20] VITALS: BP 104/65
[2021-04-02 07:11] VITALS: BP 110/63
[2021-04-02 08:40] VITALS: BP 102/74
[2021-04-02] MEDS: LORazepam 2 MG TABLET PO PRN (08:45)
[2021-04-02] MEDS: FLUoxetine HCL 20 MG CAPSULE PO SCH (08:45)
[2021-04-02 16:21] VITALS: BP 105/63
[2021-04-03 04:59] VITALS: BP 110/65
[2021-04-03 08:38] VITALS: BP 104/54
[2021-04-03 09:00] VITALS: BP 108/68
[2021-04-03] MEDS: FLUoxetine HCL 20 MG CAPSULE PO SCH (09:00)
[2021-04-03 17:39] VITALS: BP 108/65
[2021-04-04 05:45] VITALS: BP 110/68
[2021-04-04] MEDS: FLUoxetine HCL 20 MG CAPSULE PO SCH (08:22)
[2021-04-04] MEDS: LORazepam 2 MG TABLET PO PRN (08:22)
[2021-04-04 09:12] VITALS: BP 103/68
[2021-04-04 17:43] VITALS: BP 110/65
[2021-04-05 05:35] VITALS: BP 108/68
[2021-04-05 08:06] VITALS: BP 112/71
[2021-04-05] MEDS: FLUoxetine HCL 20 MG CAPSULE PO SCH (08:35)
[2021-04-05 16:29] VITALS: BP 103/60
[2021-04-06 06:16] VITALS: BP 118/72
[2021-04-06 08:34] VITALS: BP 103/63
[2021-04-06] MEDS: FLUoxetine HCL 20 MG CAPSULE PO SCH (09:12)
[2021-04-06 16:23] VITALS: BP 119/68
[2021-04-07 01:09] VITALS: BP 131/79
[2021-04-07 08:37] VITALS: BP 102/74
[2021-04-07] MEDS: FLUoxetine HCL 20 MG CAPSULE PO SCH (08:48)
[2021-04-07] MEDS: LORazepam 2 MG TABLET PO PRN (08:48)
[2021-04-07 16:27] VITALS: BP 100/66
[2021-04-08 05:43] VITALS: BP 105/68
[2021-04-08 08:21] VITALS: BP 110/67
[2021-04-08] MEDS: FLUoxetine HCL 20 MG CAPSULE PO SCH (08:24)
[2021-04-08 16:34] VITALS: BP 108/63
[2021-04-09 04:44] VITALS: BP 106/66
[2021-04-09 08:18] VITALS: BP 105/63
[2021-04-09] MEDS: FLUoxetine HCL 20 MG CAPSULE PO SCH (09:04)
[2021-04-09 17:35] VITALS: BP 100/61
[2021-04-10 05:29] VITALS: BP 110/68
[2021-04-10 08:05] VITALS: BP 114/65
[2021-04-10] MEDS: FLUoxetine HCL 20 MG CAPSULE PO SCH (08:38)
[2021-04-10 16:49] VITALS: BP 111/64
[2021-04-11 04:29] VITALS: BP 117/69
[2021-04-11] MEDS ORDERED: FLUO20CA36 PO (07:58)
[2021-04-11] MEDS: FLUoxetine HCL 20 MG CAPSULE PO SCH (08:16)
[2021-04-11 08:25] VITALS: BP 106/58
== END 2021-04-11 10:00 | disposition home or self-care (01) | DRG 750 ==
LOC: EMS 08:58 → B3A 03-19 10:38
PROVIDERS: ADMIT Psychiatry & Neurology Child & Adolescent Psychiatry; ATTEND Psychiatry & Neurology Child & Adolescent Psychiatry
DX: F20.0 Paranoid schizophrenia (principal); Z78.1 Physical restraint status; Z59.0 Homelessness; F10.10 Alcohol abuse, uncomplicated; F14.90 Cocaine use, unspecified, uncomplicated; F15.10 Other stimulant abuse, uncomplicated; F31.9 Bipolar disorder, unspecified; F17.210 Nicotine dependence, cigarettes, uncomplicated; Z88.8 Allergy status to other drugs, medicaments and biological substances; Z20.822 Contact with and (suspected) exposure to COVID-19
CPT/HCPCS: 80053; 80061; 85025; 99291; A9575; G0480; J1200; J2060; J3230; J3490

== ENCOUNTER 2023-03-24 11:18 | Inpatient (IN) | payer MEDICAID, OTHER ==
[~2023-03-24] VITALS: Ht 175.3 cm; Wt 101.2 kg
[~2023-03-24 11:18] MED LIST changes: -ARIP400S3 IM; +FLUO20CA36 PO
[2023-03-24 12:12] LABS: BASOPHILS % (AUTO) 1.3 % (0.0-2.0); EOSINOPHILS % (AUTO) 4.4 % (1.0-6.0); LYMPHOCYTES # (AUTO) 1.5 K/uL (1.0-4.8); LYMPHOCYTES % (AUTO) 26.4 % (22.0-44.0); MEAN CORPUSCULAR HEMOGLOBIN 29.5 pg (26.0-34.0); MEAN CORPUSCULAR HGB CONC 33.3 G/dL (31.0-37.0); MEAN CORPUSCULAR VOLUME 89 fL (80-100); MONOCYTES # (AUTO) 0.4 K/uL (0.1-1.0); MONOCYTES % (AUTO) 7.8 % (2.0-9.0); NEUTROPHILS # (AUTO) 3.3 K/uL (1.8-7.7); NEUTROPHILS % (AUTO) 60.1 % (40.0-70.0); PLATELET COUNT (AUTO) 271 K/uL (150-450); RED BLOOD CELL COUNT(AUTO) 5.07 MIL/uL (4.50-5.90); RED CELL DISTRIBUTION WIDTH 13.7 % (11.5-14.5)
[2023-03-24 12:27] LABS: ALANINE AMINOTRANSFERASE 29 U/L (12-78); ALBUMIN 4.1 g/dL (3.4-5.0); ALKALINE PHOSPHATASE 108 U/L (46-116); ANION GAP -3 mmol/L (8-16); ASPARTATE AMINOTRANSFERASE 14 U/L (15-37); BILIRUBIN,TOTAL 0.3 mg/dL (0.1-1.0); CALCIUM, TOTAL 9.4 mg/dL (8.8-10.5); CARBON DIOXIDE 30 mmol/L (22-29); CHLORIDE 99 mmol/L (98-107); CREATININE 0.81 mg/dL (0.60-1.30); GLOMERULAR FILTR. RATE CALC > 60 mL/min (>60); GLUCOSE,RANDOM 89 mg/dL (70-110); POTASSIUM 4.7 mmol/L (3.5-5.1); SODIUM SERUM 130 mmol/L (136-145); TOTAL PROTEIN, SERUM 7.9 g/dL (6.4-8.2)
[2023-03-24] MEDS ORDERED: LORazepam 2 MG TABLET PO PRN (12:30)
[2023-03-24] MEDS ORDERED: ZOLPIDEM TARTRATE 10 MG TABLET PO PRN (12:30)
[2023-03-24] MEDS ORDERED: OLANZapine 5 MG RAPDIS TABLET PO PRN (12:30)
[2023-03-24 12:36] LABS: COVID AG,FIA SOURCE NASAL SWAB
[2023-03-24 12:48] LABS: APPEARANCE,URINE CLEAR (CLEAR); BILIRUBIN,URINE NEGATIVE (NEGATIVE); GLUCOSE, URINE (UA) NEGATIVE (NEGATIVE); KETONES,URINE NEGATIVE (NEGATIVE); LEUKOCYTE ESTERASE ,URINE NEGATIVE (NEGATIVE); NITRATE,URINE NEGATIVE (NEGATIVE); OCCULT BLOOD,URINE NEGATIVE (NEGATIVE); PROTEIN,URINE NEGATIVE (NEGATIVE); SPECIFIC GRAVITIY, URINE 1.017 (1.003-1.030); UROBILINOGEN,URINE <=1.0 mg/dL (<=1.0)
[2023-03-24 12:55] LABS: AMPHET/METH SCREEN,URINE NEGATIVE (NEGATIVE); BARBITURATE SCREEN, URINE NEGATIVE (NEGATIVE); BENZODIAZEPINES SCREEN,URINE NEGATIVE (NEGATIVE); CANNABINOID SCREEN,URINE POSITIVE (NEGATIVE); COCAINE SCREEN,URINE NEGATIVE (NEGATIVE); METHADONE SCREEN, URINE NEGATIVE (NEGATIVE); OPIATE SCREEN,URINE NEGATIVE (NEGATIVE); PHENCYCLIDINE SCREEN,URINE NEGATIVE (NEGATIVE)
[2023-03-24 21:52] VITALS: BP 112/71; PULSE 71; RESP 16; TEMP 97.7; O2SAT 100
[2023-03-25 09:39] VITALS: BP 123/78; PULSE 88; RESP 17; TEMP 97.9; O2SAT 96
[2023-03-25] MEDS: NICOTINE POLACRILEX 4 MG LOZENGE PO PRN ×2 (10:08→16:08)
[2023-03-25] MEDS ORDERED: BENZOCAINE/MENTHOL LOZENGE PO PRN (19:45)
[2023-03-25] MEDS ORDERED: BACITRACIN 28 GM OINTMENT TP PRN (19:45)
[2023-03-25] MEDS ORDERED: LOPERAMIDE HCL 2 MG CAPSULE PO PRN (19:45)
[2023-03-25] MEDS ORDERED: MAG HYDROX/AL HYDROX/SIMETH ES 30 ML SUSPENSION UDCUP PO PRN (19:45)
[2023-03-25] MEDS ORDERED: ONDANSETRON HCL 4 MG TABLET PO PRN (19:45)
[2023-03-25] MEDS ORDERED: PETROLATUM,WHITE 28 GM JELLY TP PRN (19:45)
[2023-03-25] MEDS ORDERED: MAGNESIUM HYDROXIDE SUSPENSION 30 ML UDCUP PO PRN (19:45)
[2023-03-25] MEDS ORDERED: ACETAMINOPHEN 325 MG TABLET PO PRN (19:45)
[2023-03-25] MEDS ORDERED: DOCUSATE SODIUM 100 MG CAPSULE PO PRN (19:45)
[2023-03-25] MEDS ORDERED: ALBUTEROL SULFATE HFA 90 MCG/PUFF 8 GM INHALER IH PRN (19:45)
[2023-03-25] MEDS ORDERED: IBUPROFEN 600 MG TABLET PO PRN (19:45)
[2023-03-25] MEDS ORDERED: OMEPRAZOLE 20 MG CAPSULE PO PRN (19:45)
[2023-03-25] MEDS ORDERED: CloNIDine HCL 0.1 MG TABLET PO PRN (19:45)
[2023-03-25 20:07] VITALS: BP 128/80; PULSE 86; RESP 18; TEMP 97.8; O2SAT 98
[2023-03-26 08:18] VITALS: BP 117/85; PULSE 90; RESP 17; TEMP 97.5; O2SAT 96
[2023-03-26 08:35] LABS: HEMOGLOBIN A1C 5.2 % (3.8-5.6)
[2023-03-26 08:46] LABS: CHOL/HDL RATIO 3.9 (4.2-7.3); THYROID STIMULATING HORMONE 2.86 uIU/mL (0.36-3.74)
[2023-03-26] MEDS: NICOTINE POLACRILEX 4 MG LOZENGE PO PRN (10:21)
== END 2023-03-26 17:37 | disposition home or self-care (01) | DRG 750 ==
LOC: EMS 11:18 → B2S 18:49
PROVIDERS: ADMIT Psychiatry & Neurology Psychiatry; ATTEND Psychiatry & Neurology Psychiatry
DX: F25.1 Schizoaffective disorder, depressive type (principal); R45.851 Suicidal ideations; F12.10 Cannabis abuse, uncomplicated; F41.9 Anxiety disorder, unspecified; G47.00 Insomnia, unspecified; F17.210 Nicotine dependence, cigarettes, uncomplicated; Z20.822 Contact with and (suspected) exposure to COVID-19; F31.9 Bipolar disorder, unspecified; F10.10 Alcohol abuse, uncomplicated; K59.00 Constipation, unspecified; Z79.899 Other long term (current) drug therapy; Z88.8 Allergy status to other drugs, medicaments and biological substances
CPT/HCPCS: 80053; 80061; 80307; 81003; 83036; 84443; 85025; 99285; G0480; Q9967

== ENCOUNTER 2023-05-17 15:48 | Inpatient (IN) | payer MEDICAID ==
[~2023-05-17] VITALS: Ht 170.2 cm; Wt 100.7 kg
[2023-05-17] MEDS ORDERED: ZOLPIDEM TARTRATE 10 MG TABLET PO PRN (16:15)
[2023-05-17] MEDS ORDERED: OLANZapine 5 MG RAPDIS TABLET PO PRN (16:15)
[2023-05-17] MEDS ORDERED: LORazepam 2 MG TABLET PO PRN (16:15)
[2023-05-18 05:44] VITALS: BP 118/74; PULSE 77; RESP 18; TEMP 97.8; O2SAT 98
[2023-05-18] MEDS: NICOTINE 21 MG/24 HOUR PATCH TD SCH (08:34)
[2023-05-18 11:19] VITALS: BP 120/78; PULSE 85; RESP 17; TEMP 97.6; O2SAT 96
[2023-05-18] MEDS ORDERED: ARIPiprazole ER SUSPENSION 400 MG PRE-FILLED DUAL CHAMBER SYRINGE IM SCH (14:00)
[2023-05-18] MEDS ORDERED: ARIPiprazole ER SUSPENSION 400 MG VIAL IM ONE (14:15)
[2023-05-18] MEDS: FLUoxetine HCL 20 MG CAPSULE PO SCH (14:51)
[2023-05-18] MEDS ORDERED: ACETAMINOPHEN 325 MG TABLET PO PRN (17:45)
[2023-05-18 21:04] VITALS: BP 110/72; PULSE 98; RESP 18; TEMP 98.1; O2SAT 96
[2023-05-19 08:00] VITALS: BP 120/62; PULSE 77; RESP 18; TEMP 97.8; O2SAT 99
[2023-05-19 09:27] LABS: BASOPHILS % (AUTO) 0.9 % (0.0-2.0); EOSINOPHILS % (AUTO) 3.4 % (1.0-6.0); HEMATOCRIT 45.2 % (41-53); LYMPHOCYTES % (AUTO) 15.7 % (22.0-44.0); MEAN CORPUSCULAR HEMOGLOBIN 29.7 pg (26.0-34.0); MEAN CORPUSCULAR HGB CONC 33.2 G/dL (31.0-37.0); MEAN CORPUSCULAR VOLUME 89 fL (80-100); MONOCYTES # (AUTO) 0.4 K/uL (0.1-1.0); MONOCYTES % (AUTO) 5.9 % (2.0-9.0); NEUTROPHILS # (AUTO) 4.6 K/uL (1.8-7.7); NEUTROPHILS % (AUTO) 74.1 % (40.0-70.0); PLATELET COUNT (AUTO) 228 K/uL (150-450); RED BLOOD CELL COUNT(AUTO) 5.07 MIL/uL (4.50-5.90); RED CELL DISTRIBUTION WIDTH 13.8 % (11.5-14.5); WHITE BLOOD COUNT (AUTO) 6.3 K/uL (4.5-11.0)
[2023-05-19] MEDS: NICOTINE 21 MG/24 HOUR PATCH TD SCH (09:31)
[2023-05-19] MEDS: FLUoxetine HCL 20 MG CAPSULE PO SCH (09:31)
[2023-05-19 09:50] LABS: ALANINE AMINOTRANSFERASE 27 U/L (12-78); ALBUMIN 3.5 g/dL (3.4-5.0); ALKALINE PHOSPHATASE 95 U/L (46-116); ANION GAP 16 mmol/L (8-16); ASPARTATE AMINOTRANSFERASE 18 U/L (15-37); BILIRUBIN,TOTAL 0.3 mg/dL (0.1-1.0); CALCIUM, TOTAL 9.1 mg/dL (8.8-10.5); CARBON DIOXIDE 26 mmol/L (22-29); CHLORIDE 104 mmol/L (98-107); CREATININE 0.75 mg/dL (0.60-1.30); GLOMERULAR FILTR. RATE CALC > 60 mL/min (>60); GLUCOSE,RANDOM 110 mg/dL (70-110); POTASSIUM 4.4 mmol/L (3.5-5.1); SODIUM SERUM 145 mmol/L (136-145); TOTAL PROTEIN, SERUM 6.9 g/dL (6.4-8.2); UREA NITROGEN, BLOOD 12 mg/dL (7-18)
[2023-05-19 09:56] LABS: CHOL/HDL RATIO 4.5 (4.2-7.3); CHOLESTEROL 168 mg/dL (131-200); FREE T4 (FREE THYROXINE) 1.08 ng/dL (0.76-1.46); HDL CHOLESTEROL 37 mg/dL (40-60); LDL CHOL (CALC.) 90 mg/dL (0-130); THYROID STIMULATING HORMONE 2.19 uIU/mL (0.36-3.74); TRIGLYCERIDES 203 mg/dL (15-150)
[2023-05-19 21:11] VITALS: BP 131/81; PULSE 74; RESP 18; TEMP 97.1; O2SAT 98
[2023-05-20] MEDS: FLUoxetine HCL 20 MG CAPSULE PO SCH (09:24)
[2023-05-20] MEDS: NICOTINE 21 MG/24 HOUR PATCH TD SCH (09:26)
[2023-05-20 09:30] VITALS: BP 116/75; PULSE 87; RESP 18; TEMP 98; O2SAT 99
[2023-05-20] MEDS ORDERED: PROMETHAZINE HCL 25 MG TABLET PO PRN (20:00)
[2023-05-20] MEDS ORDERED: MAGNESIUM HYDROXIDE SUSPENSION 30 ML UDCUP PO PRN (20:00)
[2023-05-20] MEDS ORDERED: ZOLPIDEM TARTRATE 10 MG TABLET PO PRN (20:00)
[2023-05-20] MEDS ORDERED: LOPERAMIDE HCL 2 MG CAPSULE PO PRN (20:00)
[2023-05-20] MEDS ORDERED: HydrOXYzine PAMOATE 50 MG CAPSULE PO PRN (20:00)
[2023-05-20] MEDS ORDERED: TUBERCULIN, PURIFIED PROTEIN DERIVATIVE 5 TU/0.1 ML SYRINGE ID ONE (20:00)
[2023-05-20] MEDS ORDERED: PARoxetine HCL 20 MG TABLET PO ONE (20:00)
[2023-05-20] MEDS ORDERED: MAG HYDROX/AL HYDROX/SIMETH ES 30 ML SUSPENSION UDCUP PO PRN (20:00)
[2023-05-20] MEDS ORDERED: GuaiFENesin/D-METHORPHAN [SUGAR-FREE] 200-20MG/10 ML SYRUP UDCUP PO PRN (20:00)
[2023-05-20] MEDS ORDERED: OLANZapine 5 MG RAPDIS TABLET PO PRN (20:00)
[2023-05-20] MEDS: OLANZapine 5 MG RAPDIS TABLET PO SCH (20:57)
[2023-05-20] MEDS: MELATONIN 5 MG TABLET PO SCH (20:57)
[2023-05-20 23:29] VITALS: BP 134/81; PULSE 91; RESP 19; TEMP 98.7; O2SAT 98
[2023-05-21 07:07] LABS: HEMOGLOBIN A1C 5.2 % (3.8-5.6)
[2023-05-21 07:30] LABS: CHOL/HDL RATIO 4.1 (4.2-7.3); FREE T4 (FREE THYROXINE) 1.02 ng/dL (0.76-1.46); THYROID STIMULATING HORMONE 1.87 uIU/mL (0.36-3.74)
[2023-05-21 08:00] VITALS: BP 113/60; PULSE 97; RESP 17; TEMP 96.6; O2SAT 96
[2023-05-21] MEDS: MULTIVITAMINS WITH MINERALS, THERAPEUTIC TABLET PO SCH (09:49)
[2023-05-21] MEDS: OMEGA-3/DHA/EPA/FISH OIL 1,000 MG CAPSULE PO SCH (09:49)
[2023-05-21] MEDS: FOLIC ACID 1 MG TABLET PO SCH (09:49)
[2023-05-21] MEDS: THIAMINE 100 MG TABLET PO SCH ×2 (09:49→16:52)
[2023-05-21] MEDS: NALTREXONE HCL 50 MG TABLET PO SCH (09:49)
[2023-05-21] MEDS: NICOTINE 21 MG/24 HOUR PATCH TD SCH (09:56)
[2023-05-21] MEDS: ACETAMINOPHEN 325 MG TABLET PO PRN (18:23)
[2023-05-21 20:00] VITALS: BP 90/68; PULSE 76; RESP 18; TEMP 97.2; O2SAT 95
[2023-05-21] MEDS: MELATONIN 5 MG TABLET PO SCH (20:59)
[2023-05-21] MEDS ORDERED: PARoxetine HCL 20 MG TABLET PO SCH (21:00)
[2023-05-21] MEDS: OLANZapine 5 MG RAPDIS TABLET PO SCH (21:01)
[2023-05-22] MEDS: PARoxetine HCL 10 MG TABLET PO SCH (06:50)
[2023-05-22] MEDS: FOLIC ACID 1 MG TABLET PO SCH (09:07)
[2023-05-22] MEDS: OMEGA-3/DHA/EPA/FISH OIL 1,000 MG CAPSULE PO SCH (09:07)
[2023-05-22] MEDS: NALTREXONE HCL 50 MG TABLET PO SCH (09:07)
[2023-05-22] MEDS: THIAMINE 100 MG TABLET PO SCH ×2 (09:07→17:17)
[2023-05-22] MEDS: MULTIVITAMINS WITH MINERALS, THERAPEUTIC TABLET PO SCH (09:08)
[2023-05-22 10:21] VITALS: BP 118/75; PULSE 83; RESP 18; TEMP 97.1; O2SAT 95
[2023-05-22] MEDS: NICOTINE 21 MG/24 HOUR PATCH TD SCH (11:15)
[2023-05-22] MEDS ORDERED: LORazepam 1 MG TABLET PO PRN (20:15)
[2023-05-22 20:35] VITALS: BP 111/82; PULSE 88; RESP 18; TEMP 97.5; O2SAT 96
[2023-05-22] MEDS ORDERED: OLANZapine 10 MG RAPDIS TABLET PO SCH (21:00)
[2023-05-22] MEDS ORDERED: PARoxetine HCL 10 MG TABLET PO SCH (21:00)
[2023-05-23] MEDS: PARoxetine HCL 10 MG TABLET PO SCH (06:56)
[2023-05-23] MEDS: THIAMINE 100 MG TABLET PO SCH ×2 (08:15→16:09)
[2023-05-23] MEDS: MULTIVITAMINS WITH MINERALS, THERAPEUTIC TABLET PO SCH (08:15)
[2023-05-23] MEDS: NALTREXONE HCL 50 MG TABLET PO SCH (08:15)
[2023-05-23] MEDS: FOLIC ACID 1 MG TABLET PO SCH (08:15)
[2023-05-23] MEDS: OMEGA-3/DHA/EPA/FISH OIL 1,000 MG CAPSULE PO SCH (08:15)
[2023-05-23] MEDS: NICOTINE 21 MG/24 HOUR PATCH TD SCH (08:16)
[2023-05-23 09:21] VITALS: BP 152/92; PULSE 100; RESP 18; TEMP 97.3; O2SAT 95
[2023-05-23] MEDS: ACETAMINOPHEN 325 MG TABLET PO PRN (17:54)
[2023-05-23 17:55] VITALS: BP 129/81; PULSE 89; RESP 18
[2023-05-23] MEDS: ZOLPIDEM TARTRATE 5 MG TABLET PO PRN (20:35)
[2023-05-23] MEDS ORDERED: NALT50TA PO (21:46)
[2023-05-23] MEDS ORDERED: PARO-37 PO (21:46)
[2023-05-23] MEDS ORDERED: OMEG-135 PO (21:46)
[2023-05-23] MEDS ORDERED: ARIP400S3 IM (21:46)
[2023-05-23 21:53] VITALS: BP 108/64; PULSE 75; RESP 18; TEMP 97.1; O2SAT 95
[2023-05-24] MEDS: PARoxetine HCL 20 MG TABLET PO SCH (06:22)
[2023-05-24] MEDS: FOLIC ACID 1 MG TABLET PO SCH (09:19)
[2023-05-24] MEDS: THIAMINE 100 MG TABLET PO SCH ×2 (09:19→16:06)
[2023-05-24] MEDS: NALTREXONE HCL 50 MG TABLET PO SCH (09:19)
[2023-05-24] MEDS: NICOTINE 21 MG/24 HOUR PATCH TD SCH (09:20)
[2023-05-24] MEDS: MULTIVITAMINS WITH MINERALS, THERAPEUTIC TABLET PO SCH (09:20)
[2023-05-24] MEDS: OMEGA-3/DHA/EPA/FISH OIL 1,000 MG CAPSULE PO SCH (09:20)
[2023-05-24 10:24] VITALS: BP 148/87; PULSE 81; RESP 18; TEMP 97.9; O2SAT 98
[2023-05-24 21:21] VITALS: BP 130/68; PULSE 79; RESP 16; TEMP 96.8; O2SAT 96
[2023-05-25] MEDS: PARoxetine HCL 20 MG TABLET PO SCH (06:46)
[2023-05-25] MEDS: NALTREXONE HCL 50 MG TABLET PO SCH (08:53)
[2023-05-25] MEDS: OMEGA-3/DHA/EPA/FISH OIL 1,000 MG CAPSULE PO SCH (08:53)
[2023-05-25] MEDS: FOLIC ACID 1 MG TABLET PO SCH (08:53)
[2023-05-25] MEDS: MULTIVITAMINS WITH MINERALS, THERAPEUTIC TABLET PO SCH (08:53)
[2023-05-25] MEDS: THIAMINE 100 MG TABLET PO SCH ×2 (08:53→16:55)
[2023-05-25] MEDS: NICOTINE 21 MG/24 HOUR PATCH TD SCH (08:54)
[2023-05-25 16:05] VITALS: BP 144/77; PULSE 96; RESP 18; TEMP 97.6; O2SAT 97
[2023-05-25] MEDS: ACETAMINOPHEN 325 MG TABLET PO PRN (16:05)
[2023-05-25 21:35] VITALS: BP 112/71; PULSE 63; RESP 19; TEMP 97.6; O2SAT 97
[2023-05-25] MEDS: ZOLPIDEM TARTRATE 5 MG TABLET PO PRN (21:54)
[2023-05-26] MEDS: PARoxetine HCL 20 MG TABLET PO SCH (06:26)
[2023-05-26] MEDS: FOLIC ACID 1 MG TABLET PO SCH (08:25)
[2023-05-26] MEDS: NICOTINE 21 MG/24 HOUR PATCH TD SCH (08:25)
[2023-05-26] MEDS: OMEGA-3/DHA/EPA/FISH OIL 1,000 MG CAPSULE PO SCH (08:25)
[2023-05-26] MEDS: THIAMINE 100 MG TABLET PO SCH ×2 (08:25→17:14)
[2023-05-26] MEDS: MULTIVITAMINS WITH MINERALS, THERAPEUTIC TABLET PO SCH (08:25)
[2023-05-26] MEDS: NALTREXONE HCL 50 MG TABLET PO SCH (08:25)
[2023-05-26 10:20] VITALS: BP 144/79; PULSE 96; RESP 18; TEMP 96.8; O2SAT 97
[2023-05-26 20:10] VITALS: BP 135/73; PULSE 85; RESP 19; TEMP 97; O2SAT 98
[2023-05-26] MEDS: ZOLPIDEM TARTRATE 5 MG TABLET PO PRN (21:24)
[2023-05-27] MEDS: PARoxetine HCL 20 MG TABLET PO SCH (06:42)
[2023-05-27] MEDS: THIAMINE 100 MG TABLET PO SCH (09:30)
[2023-05-27] MEDS: FOLIC ACID 1 MG TABLET PO SCH (09:30)
[2023-05-27] MEDS: OMEGA-3/DHA/EPA/FISH OIL 1,000 MG CAPSULE PO SCH (09:30)
[2023-05-27] MEDS: NALTREXONE HCL 50 MG TABLET PO SCH (09:30)
[2023-05-27] MEDS: MULTIVITAMINS WITH MINERALS, THERAPEUTIC TABLET PO SCH (09:30)
[2023-05-27] MEDS: NICOTINE 21 MG/24 HOUR PATCH TD SCH (09:33)
[2023-05-27 10:40] VITALS: BP 121/65; PULSE 94; RESP 18; TEMP 98.2; O2SAT 98
[2023-05-27 13:15] VITALS: BP 130/77; PULSE 89; RESP 18; TEMP 97
[2023-05-27] MEDS: ACETAMINOPHEN 325 MG TABLET PO PRN (13:16)
[2023-06-15] MEDS ORDERED: ARIPiprazole ER SUSPENSION 400 MG PRE-FILLED DUAL CHAMBER SYRINGE IM SCH (09:00)
== END 2023-05-27 17:25 | disposition home or self-care (01) | DRG 750 ==
LOC: 3EI 05-18 04:59
PROVIDERS: ADMIT Psychiatry & Neurology Psychiatry; ATTEND Psychiatry & Neurology Psychiatry
DX: F25.1 Schizoaffective disorder, depressive type (principal); R45.851 Suicidal ideations; F10.20 Alcohol dependence, uncomplicated; F15.20 Other stimulant dependence, uncomplicated; F12.20 Cannabis dependence, uncomplicated; F17.210 Nicotine dependence, cigarettes, uncomplicated; T43.96XA Underdosing of unspecified psychotropic drug, initial encounter; Y92.89 Other specified places as the place of occurrence of the external cause; Z55.9 Problems related to education and literacy, unspecified; Z59.9 Problem related to housing and economic circumstances, unspecified; Z63.9 Problem related to primary support group, unspecified; Z65.3 Problems related to other legal circumstances; Z79.899 Other long term (current) drug therapy; Z88.8 Allergy status to other drugs, medicaments and biological substances
CPT/HCPCS: 80053; 80061; 83036; 84439; 84443; 85025; 86592; J0401; Q9967